=== PATIENT | female | born 1965 | race Caucasian/White ===

== ENCOUNTER 2017-03-02 15:42 | Emergency (ER) | payer OTHER ==
[~2017-03-02 15:42] MED LIST: ATENOLOL25 MG PO; CHONDROITIN SULFATE PO; FLONASE0.05 %; GLUCOSAMINE CHO1 CAP PO; MULTIVITAMIN1 TAB PO; SEREVENT DISKU50 MCG INH; TUMS500 MG PO; VITAMIN D310000 IU PO
--- NOTE | 2017-03-02 17:25 | ED NURSING NOTES ---
Clinical Report - Nurses [address] [place] [address] 03/02/2017 15:44 Patient: DANG BURNETTE TRIAGE Triage time 16:42 Mar 02 2017. Chief Complaint: INJURY TO HEAD and (pt under the house hit her head 2 days ago on an I beam- no loc "but I sure saw stars" pt cont with headache and nausea, called pcp and was sent in for eval). Alert. No acute distress. SEPSIS SCREEN: Sepsis Screen: negative. DELMY COMA SCORE: Delmy Coma Scale: 15- eyes open spontaneously (4); best verbal response- oriented x 4 (5); best motor response- obeys commands (6). --16:47 Marika Mireles R.N. 16:42 03/02/17. BP: 133/79. HR: 88. RR: 15. O2 saturation: 99%. Temp: 97.8 F. Pain level now: 810. --16:47 Marika Mireles R.N. Weight: 68 kg stated. Height/Length: 59 inches Per Patient. BMI: 30.3. --16:43 Marika Mireles R.N. Medications Atenolol Oral. Omeprazole Oral. Simvastatin Oral. --16:44 Marika Mireles R.N. Meloxicam Oral. --16:44 Marika Mireles R.N. Allergies Sulfa Antibiotics. --16:44 Marika Mireles R.N. Medication/allergy information source: the patient. --16:47 Marika Mireles R.N. History Arrived by private vehicle. Historian: patient. Accompanied by family. This occurred (2 days ago). She has had a headache. No loss of consciousness. 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 PAST MEDICAL HX: Tetanus status: up-to-date. Immunizations: up-to-date. The patient has had a hysterectomy. SOCIAL HX: Former smoker. Occasional alcohol use. History of drug use: marijuana. No infectious disease exposure. ABUSE ASSESSMENT: No report of abuse. SELF HARM ASSESSMENT: A self harm assessment was performed. The patient answered "no" to the question "Do you have thoughts of harming or killing yourself?". FALL RISK ASSESSMENT: Fall risk assessment completed. No fall risk identified. NUTRITIONAL RISK ASSESSMENT: The nutritional risk assessment revealed no deficiencies. FUNCTIONAL ASSESSMENT: Functional assessment: no impairments noted. LEARNING NEEDS ASSESSMENT: The learning needs assessment revealed no barriers. SKIN INTEGRITY ASSESSMENT: Skin integrity risk assessment completed. No skin integrity risk identified. --16:47 Marika Mireles R.N. PROBLEMS: Abdominal Pain. Gastritis. Fall. Contusion. Hypokalemia. Dizziness. Hypertension. --16:45 Marika Mireles R.N. ADDITIONAL SURGERIES: Hysterectomy. --16:45 Marika Mireles R.N. Interventions ID and allergy band on patient. --16:47 Marika Mireles R.N. PHYSICAL ASSESSMENT Ambulatory to room. GENERAL / NEURO / PSYCH: Alert. Oriented X 4. Appears in no acute distress. HEENT: Head tender. Vertex: swelling. Right and left ear within normal limits. RESPIRATORY: Respirations not labored. BACK: No neck or back tenderness. ROM normal to the neck and back. SKIN: Skin is warm and dry. --16:47 Marika Mireles R.N. NURSING PROGRESS NOTES Chair And Couch Maker provided for the general exam by the physician. Patient identifiers checked. Call light placed in reach. Side rails up x 1. Bed placed in lowest position. Brakes of bed on. Patient waiting for evaluation. --16:48 Marika Mrieles R.N. DISPOSITION / DISCHARGE No learning barriers present. Discharge instructions provided and reviewed with the patient. Reviewed medication(s) side effects, precautions, dosing and course information. Prescription(s) given to the patient. The patient was discharged by the physician. She was discharged home and accompanied by spouse and family. She left the Emergency Department ambulatory and via private vehicle. Spouse driving. ( pt dc home ambulatory with steady gait to lobby, speech clear and articulate, perrla, given rx and f/u). --17:41 Marika Mireles R.N. 17:39 03/02/17. BP: 126/69. HR: 72. RR: 15. O2 saturation: 100%. Temp: deferred. Pain level now: 02/27. --17:41 Marika Mireles R.N. Locked/Released at 03/04/2017 23:36 by Marika Mireles R.N.
--- NOTE | 2017-03-02 17:25 | ED NURSING NOTES ---
Clinical Report - Nurses [facility] [address] [place] [address] 03/02/2017 15:44 Patient: DANG BURNETTE TRIAGE Triage time 16:42 Mar 02 2017. Chief Complaint: INJURY TO HEAD and (pt under the house hit her head 2 days ago on an I beam- no loc "but I sure saw stars" pt cont with headache and nausea, called pcp and was sent in for eval). Alert. No acute distress. SEPSIS SCREEN: Sepsis Screen: negative. DELMY COMA SCORE: Delmy Coma Scale: 15- eyes open spontaneously (4); best verbal response- oriented x 4 (5); best motor response- obeys commands (6). --16:47 Marika Mireles R.N. 16:42 03/02/17. BP: 133/79. HR: 88. RR: 15. O2 saturation: 99%. Temp: 97.8 F. Pain level now: 810. --16:47 Marika Mireles R.N. Weight: 68 kg stated. Height/Length: 59 inches Per Patient. BMI: 30.3. --16:43 Marika Mireles R.N. Medications Atenolol Oral. Omeprazole Oral. Simvastatin Oral. --16:44 Marika Mireles R.N. Meloxicam Oral. --16:44 Marika Mireles R.N. Allergies Sulfa Antibiotics. --16:44 Marika Mireles R.N. Medication/allergy information source: the patient. --16:47 Marika Mireles R.N. History Arrived by private vehicle. Historian: patient. Accompanied by family. This occurred (2 days ago). She has had a headache. No loss of consciousness. 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 PAST MEDICAL HX: Tetanus status: up-to-date. Immunizations: up-to-date. The patient has had a hysterectomy. SOCIAL HX: Former smoker. Occasional alcohol use. History of drug use: marijuana. No infectious disease exposure. ABUSE ASSESSMENT: No report of abuse. SELF HARM ASSESSMENT: A self harm assessment was performed. The patient answered "no" to the question "Do you have thoughts of harming or killing yourself?". FALL RISK ASSESSMENT: Fall risk assessment completed. No fall risk identified. NUTRITIONAL RISK ASSESSMENT: The nutritional risk assessment revealed no deficiencies. FUNCTIONAL ASSESSMENT: Functional assessment: no impairments noted. LEARNING NEEDS ASSESSMENT: The learning needs assessment revealed no barriers. SKIN INTEGRITY ASSESSMENT: Skin integrity risk assessment completed. No skin integrity risk identified. --16:47 Marika Mireles R.N. PROBLEMS: Abdominal Pain. Gastritis. Fall. Contusion. Hypokalemia. Dizziness. Hypertension. --16:45 Marika Mireles R.N. ADDITIONAL SURGERIES: Hysterectomy. --16:45 Marika Mireles R.N. Interventions ID and allergy band on patient. --16:47 Marika Mireles R.N. PHYSICAL ASSESSMENT Ambulatory to room. GENERAL / NEURO / PSYCH: Alert. Oriented X 4. Appears in no acute distress. HEENT: Head tender. Vertex: swelling. Right and left ear within normal limits. RESPIRATORY: Respirations not labored. BACK: No neck or back tenderness. ROM normal to the neck and back. SKIN: Skin is warm and dry. --16:47 Marika Mireles R.N. NURSING PROGRESS NOTES Emblem Drawer In provided for the general exam by the physician. Patient identifiers checked. Call light placed in reach. Side rails up x 1. Bed placed in lowest position. Brakes of bed on. Patient waiting for evaluation. --16:48 Marika Mireles R.N. DISPOSITION / DISCHARGE No learning barriers present. Discharge instructions provided and reviewed with the patient. Reviewed medication(s) side effects, precautions, dosing and course information. Prescription(s) given to the patient. The patient was discharged by the physician. She was discharged home and accompanied by spouse and family. She left the Emergency Department ambulatory and via private vehicle. Spouse driving. ( pt dc home ambulatory with steady gait to lobby, speech clear and articulate, perrla, given rx and f/u). --17:41 Marika Mireles R.N. 17:39 03/02/17. BP: 126/69. HR: 72. RR: 15. O2 saturation: 100%. Temp: deferred. Pain level now: 02/27. --17:41 Marika Mireles R.N. Locked/Released at 03/04/2017 23:36 by Marika Mireles R.N.
--- NOTE | 2017-03-02 17:25 | ED CLINICAL REPORT ---
Clinical Report - Physicians/Mid Levels [facility] [address] [place] [address] 03/02/2017 15:44 Patient: DANG BURNETTE Time Seen: 16:24. Arrived- By private vehicle. Historian- patient. HISTORY OF PRESENT ILLNESS Chief Complaint: INJURY TO HEAD. Location of injuries- head. The injury occurred 2 days ago. The patient sustained a single severe blow. Occurred at home. ( patient reports she was crying under her house to turn off water supply. She accidentally struck her head on a cross beam. She "saw stars." However, she denies loss of consciousness. . She denies any focal numbness weakness or tingling. She has had a persistent headache since. However, this is different from her usual migraines.). The patient complains of severe pain. The patient sustained a blow to the head and was dazed. No neck pain or loss of consciousness. REVIEW OF SYSTEMS No chills, fever, sweats, calf pain or chest pain. No cough, difficulty breathing, pedal edema, palpitations or abdominal pain. No constipation, diarrhea, vomiting or urinary problems. The patient has had nausea. All systems otherwise negative, except as recorded above. PAST HISTORY Problems: Abdominal Pain. Gastritis. Fall. Contusion. Hypokalemia. Dizziness. Hypertension. Additional Surgeries: Hysterectomy. Medications: Meloxicam Oral. Atenolol Oral. Omeprazole Oral. Simvastatin Oral. Allergies: Sulfa Antibiotics. SOCIAL HISTORY Former smoker, end date 11/2016. Occasional alcohol use. History of occasional drug use: marijuana. FAMILY HISTORY Premature onset heart disease in first-degree relative (mother and sibling); cerebral aneurysm in first-degree relative (sibling); cancer in first-degree relative (father). ADDITIONAL NOTES The nursing notes have been reviewed. PHYSICAL EXAM Vital Signs: 03/02/2017 16:42 BP: 133/79. HR: 88. RR: 15. O2 saturation: 99%. Temp: 97.8 F. Pain level now: 8/10. Have been reviewed. Appearance: Alert. Head: Vertex. Eyes: Pupils equal, round and reactive to light. EOM intact. ENT: No dental injury. Pharynx normal. Neck: Painless ROM. Neck non-tender and non-tender. No vertebral tenderness. CVS: Heart sounds normal. Respiratory: Breath sounds normal. Abdomen: Soft and nontender. Back: No tenderness. ROM normal. Skin: Skin intact. Skin warm and dry. Normal skin color. Normal skin turgor. Extremities: Normal inspection. Pelvis stable. Extremities atraumatic. No lower extremity edema. Neuro: Oriented X 3. Mood/affect normal. Speech normal. No motor deficit. Normal gait. No sensory deficit. PROGRESS AND PROCEDURES Course of Care: Patient is stable. Patient/family counseled. Old medical records reviewed. Disposition: Discharged. Condition: stable. CLINICAL IMPRESSION Concussion. No loss of consciousness. INSTRUCTIONS No driving or operating machinery while taking medication. (if your symptoms persist, talk with your doctor about whether you would benefit from an MRI.). Warnings: GENERAL WARNINGS: Return or contact your physician immediately if your condition worsens or changes unexpectedly, if not improving as expected, or if other problems arise. Prescription Medications: Ultram 50 mg: take 1-2 orally every 6 hours as needed for pain. Dispense fifteen (15). Substitution is permissible. OTC Medications: Acetaminophen (available over the counter): take according to label instructions. Motrin (available over the counter): take according to label instructions. Follow-up: Follow up with your doctor in five days. Call for the next available appointment. Follow up with a neurologist- as recommended by your primary care physician. Understanding of the discharge instructions verbalized by patient and family. (Electronically signed by Nathaniel Montana MD 03/02/2017 18:11)
--- NOTE | 2017-03-04 23:37 | ED MED RECONCILIATION SUMMARY ---
Patient: DANG BURNETTE Medication Reconciliation Report [facility] VisitID: [id number] [address] [place] [address] 51y, F Registration Date/Time: 03/02/2017 Weight: 68.0 kg Height/Length: 59 in. BMI: 30.3 ALLERGIES: Sulfa Antibiotics The patient's Home Medications are listed below: THE FOLLOWING MEDICATIONS NEED TO BE RECONCILED: Atenolol Oral Meloxicam Oral Omeprazole Oral Simvastatin Oral The source(s) of the original Home Medication information: patient The following Medications were given to the patient in the Emergency Department: None. The following Medications were prescribed to the patient: Acetaminophen (available over the counter): take according to label instructions. -- Nathaniel Montana MD Motrin (available over the counter): take according to label instructions. -- Nathaniel Montana MD Ultram 50 mg: take 1-2 orally every 6 hours as needed for pain. Dispense fifteen (15). Substitution is permissible. -- Nathaniel Montana MD
--- NOTE | 2017-03-04 23:37 | ED MED RECONCILIATION SUMMARY ---
Patient: DANG BURNETTE Medication Reconciliation Report [facility] VisitID: [id number] [address] [place] [address] 51y, F Registration Date/Time: 03/02/2017 Weight: 68.0 kg Height/Length: 59 in. BMI: 30.3 ALLERGIES: Sulfa Antibiotics The patient's Home Medications are listed below: THE FOLLOWING MEDICATIONS NEED TO BE RECONCILED: Atenolol Oral Meloxicam Oral Omeprazole Oral Simvastatin Oral The source(s) of the original Home Medication information: patient The following Medications were given to the patient in the Emergency Department: None. The following Medications were prescribed to the patient: Acetaminophen (available over the counter): take according to label instructions. -- Nathaniel Montana MD Motrin (available over the counter): take according to label instructions. -- Nathaniel Montana MD Ultram 50 mg: take 1-2 orally every 6 hours as needed for pain. Dispense fifteen (15). Substitution is permissible. -- Nathaniel Montana MD
--- NOTE | 2017-03-04 23:37 | ED MAR SUMMARY ---
..... Medication Administration Record [facility] [address] [place], [place] [id number] Patient: DANG BURNETTE Visit ID: [id number] 51y, F Weight: 68.0 kg Height/Length: 59 in BMI: 30.3 ALLERGIES: Sulfa Antibiotics
--- NOTE | 2017-03-04 23:37 | ED DISCHARGE INSTRUCTIONS ---
Patient: DANG BURNETTE General Instructions [facility] VisitID: [id number] [place] [address] 51y, F Registration Date/Time: 03/02/2017 Concussion. No loss of consciousness. INSTRUCTIONS No driving or operating machinery while taking medication. (if your symptoms persist, talk with your doctor about whether you would benefit from an MRI.). Warnings: GENERAL WARNINGS: Return or contact your physician immediately if your condition worsens or changes unexpectedly, if not improving as expected, or if other problems arise. Prescription Medications: Ultram 50 mg: take 1-2 orally every 6 hours as needed for pain. Dispense fifteen (15). Substitution is permissible. OTC Medications: Acetaminophen (available over the counter): take according to label instructions. Motrin (available over the counter): take according to label instructions. Follow-up: Follow up with your doctor in five days. Call for the next available appointment. Follow up with a neurologist- as recommended by your primary care physician. Understanding of the discharge instructions verbalized by patient and family. ADDITIONAL INFORMATION Concussion (No Wake-Up) A concussion happens when you hit your head with enough force to shake up the brain. This may cause you to lose consciousness be "knocked out" - but not always. Depending on how hard you hit your head, it will take from a few hours up to a few days to get better. Sometimes symptoms may last a few months or longer. This is called post-concussion syndrome. At first, you may have a headache, nausea, vomiting, or dizziness. You may also have problems concentrating or remembering things. This is normal. Symptoms should get better as the hours and days go by. Symptoms that get worse could be a sign of a more serious injury. This might be a bruise or bleeding in the brain. Thats why its important to watch for the warning signs listed below. Home care Follow these tips to help care for yourself at home: During the next day (24 hours) someone must stay with you to check for the signs below. If your face or scalp swells, apply an ice pack for 20 minutes every 1 to 2 hours. Do this until the swelling starts to go down. You can make an ice pack by putting ice cubes in a plastic bag and wrapping the bag in a towel. for 20 minutes every 1-2 hours until the swelling starts to go down. You may use acetaminophen to control pain, unless another pain medicine was prescribed. If you have chronic liver or kidney disease, talk with your doctor before using these medicines. Also talk with your doctor if you ever had a stomach ulcer or GI bleeding. For the next 24 hours: Dont drink alcohol or take sedatives or medicines that make you sleepy. Dont drive or operate machinery. Avoid doing anything strenuous. Dont lift or strain. Dont return to sports or any activity that could cause you to hit your head until all symptoms are gone and you have been cleared by your doctor. A second head injury before fully recovering from the first one can lead to serious brain injury. Follow-up care Follow up with your doctor in 1 week, or as directed. Note: A radiologist will review any X-rays or CT scans that were taken. You will be told of any new findings that may affect your care. When to seek medical care Get prompt medical attention if any of these occur: Repeated vomiting Headache or dizziness that is severe or gets worse Unusual drowsiness, or unable to wake up as usual Confusion or change in behavior or speech, or memory loss Blurred vision Convulsion (seizure) Swelling on the scalp or face that gets worse Redness, warmth, or pus from the swollen area Fluid draining from or bleeding from the nose or ears Tramadol Hydrochloride Oral tablet What is this medicine? TRAMADOL (TRA ma dole) is a pain reliever. It is used to treat moderate to severe pain in adults. How should I use this medicine? Take this medicine by mouth with a full glass of water. Follow the directions on the prescription label. If the medicine upsets your stomach, take it with food or milk. Do not take more medicine than you are told to take. Talk to your style advisor regarding the use of this medicine in children. Special care may be needed. What side effects may I notice from receiving this medicine? Side effects that you should report to your doctor or health wound care center consultant as soon as possible: allergic reactions like skin rash, itching or hives, swelling of the face, lips, or tongue breathing difficulties, wheezing confusion itching light headedness or fainting spells redness, blistering, peeling or loosening of the skin, including inside the mouth seizures Side effects that usually do not require medical attention (report to your doctor or health wound care center consultant if they continue or are bothersome): constipation dizziness drowsiness headache nausea, vomiting What may interact with this medicine? Do not take this medicine with any of the following medications: MAOIs like Carbex, Eldepryl, Marplan, Nardil, and Parnate This medicine may also interact with the following medications: alcohol or medicines that contain alcohol antihistamines benzodiazepines bupropion carbamazepine or oxcarbazepine clozapine cyclobenzaprine digoxin furazolidone linezolid medicines for depression, anxiety, or psychotic disturbances medicines for migraine headache like almotriptan, eletriptan, frovatriptan, naratriptan, rizatriptan, sumatriptan, zolmitriptan medicines for pain like pentazocine, buprenorphine, butorphanol, meperidine, nalbuphine, and propoxyphene medicines for sleep muscle relaxants naltrexone phenobarbital phenothiazines like perphenazine, thioridazine, chlorpromazine, mesoridazine, fluphenazine, prochlorperazine, promazine, and trifluoperazine procarbazine warfarin What if I miss a dose? If you miss a dose, take it as soon as you can. If it is almost time for your next dose, take only that dose. Do not take double or extra doses. Where should I keep my medicine? Keep out of the reach of children. Store at room temperature between 15 and 30 degrees C (59 and 86 degrees F). Keep container tightly closed. Throw away any unused medicine after the expiration date. What should I tell my health care provider before I take this medicine? They need to know if you have any of these conditions: brain tumor depression drug abuse or addiction head injury if you frequently drink alcohol containing drinks kidney disease or trouble passing urine liver disease lung disease, asthma, or breathing problems seizures or epilepsy suicidal thoughts, plans, or attempt; a previous suicide attempt by you or a family member an unusual or allergic reaction to tramadol, codeine, other medicines, foods, dyes, or preservatives or trying to get breast-feeding What should I watch for while using this medicine? Tell your doctor or health wound care center consultant if your pain does not go away, if it gets worse, or if you have new or a different type of pain. You may develop tolerance to the medicine. Tolerance means that you will need a higher dose of the medicine for pain relief. Tolerance is normal and is expected if you take this medicine for a long time. Do not suddenly stop taking your medicine because you may develop a severe reaction. Your body becomes used to the medicine. This does NOT mean you are addicted. Addiction is a behavior related to getting and using a drug for a non-medical reason. If you have pain, you have a medical reason to take pain medicine. Your doctor will tell you how much medicine to take. If your doctor wants you to stop the medicine, the dose will be slowly lowered over time to avoid any side effects. You may get drowsy or dizzy. Do not drive, use machinery, or do anything that needs mental alertness until you know how this medicine affects you. Do not stand or sit up quickly, especially if you are an older patient. This reduces the risk of dizzy or fainting spells. Alcohol can increase or decrease the effects of this medicine. Avoid alcoholic drinks. You may have constipation. Try to have a bowel movement at least every 2 to 3 days. If you do not have a bowel movement for 3 days, call your doctor or health wound care center consultant. Your mouth may get dry. Chewing sugarless gum or sucking hard candy, and drinking plenty of water may help. Contact your doctor if the problem does not go away or is severe. Acetaminophen Oral tablet What is this medicine? ACETAMINOPHEN (a set a SILVANA riky fen) is a pain reliever. It is used to treat mild pain and fever. How should I use this medicine? Take this medicine by mouth with a glass of water. Follow the directions on the package or prescription label. Take your medicine at regular intervals. Do not take your medicine more often than directed. Talk to your style advisor regarding the use of this medicine in children. While this drug may be prescribed for children as young as 6 years of age for selected conditions, precautions do apply. What side effects may I notice from receiving this medicine? Side effects that you should report to your doctor or health wound care center consultant as soon as possible: allergic reactions like skin rash, itching or hives, swelling of the face, lips, or tongue breathing problems fever or sore throat redness, blistering, peeling or loosening of the skin, including inside the mouth trouble passing urine or change in the amount of urine unusual bleeding or bruising unusually weak or tired yellowing of the eyes or skin Side effects that usually do not require medical attention (report to your doctor or health wound care center consultant if they continue or are bothersome): headache nausea, stomach upset What may interact with this medicine? alcohol imatinib isoniazid other medicines with acetaminophen What if I miss a dose? If you miss a dose, take it as soon as you can. If it is almost time for your next dose, take only that dose. Do not take double or extra doses. Where should I keep my medicine? Keep out of reach of children. Store at room temperature between 20 and 25 degrees C (68 and 77 degrees F). Protect from moisture and heat. Throw away any unused medicine after the expiration date. What should I tell my health care provider before I take this medicine? They need to know if you have any of these conditions: if you frequently drink alcohol containing drinks liver disease an unusual or allergic reaction to acetaminophen, other medicines, foods, dyes or preservatives or trying to get breast-feeding What should I watch for while using this medicine? Tell your doctor or health wound care center consultant if the pain lasts more than 10 days (5 days for children), if it gets worse, or if there is a new or different kind of pain. Also, check with your doctor if a fever lasts for more than 3 days. Do not take other medicines that contain acetaminophen with this medicine. Always read labels carefully. If you have questions, ask your doctor or pharmacist. If you take too much acetaminophen get medical help right away. Too much acetaminophen can be very dangerous and cause liver damage. Even if you do not have symptoms, it is important to get help right away. Ibuprofen Oral tablet What is this medicine? IBUPROFEN (eye BYOO proe fen) is a non-steroidal anti-inflammatory drug (NSAID). It is used for dental pain, fever, headaches or migraines, osteoarthritis, rheumatoid arthritis, or painful monthly periods. It can also relieve minor aches and pains caused by a cold, flu, or sore throat. How should I use this medicine? Take this medicine by mouth with a glass of water. Follow the directions on the prescription label. Take this medicine with food if your stomach gets upset. Try to not lie down for at least 10 minutes after you take the medicine. Take your medicine at regular intervals. Do not take your medicine more often than directed. A special MedGuide will be given to you by the pharmacist with each prescription and refill. Be sure to read this information carefully each time. Talk to your style advisor regarding the use of this medicine in children. Special care may be needed. What side effects may I notice from receiving this medicine? Side effects that you should report to your doctor or health wound care center consultant as soon as possible: allergic reactions like skin rash, itching or hives, swelling of the face, lips, or tongue black or bloody stools, blood in the urine or in vomit breathing problems changes in vision chest pain general ill feeling or flu-like symptoms nausea or vomiting redness, blistering, peeling or loosening of the skin, including inside the mouth slurred speech or weakness on one side of the body stomach pain unexplained weight gain or swelling unusually weak or tired yellowing of eyes or skin Side effects that usually do not require medical attention (report to your doctor or health wound care center consultant if they continue or are bothersome): constipation or diarrhea dizziness gas or heartburn stomach upset What may interact with this medicine? Do not take this medicine with any of the following medications: cidofovir ketorolac methotrexate pemetrexed This medicine may also interact with the following medications: alcohol aspirin diuretics lithium other drugs for inflammation like prednisone warfarin What if I miss a dose? If you miss a dose, take it as soon as you can. If it is almost time for your next dose, take only that dose. Do not take double or extra doses. Where should I keep my medicine? Keep out of the reach of children. Store at room temperature between 15 and 30 degrees C (59 and 86 degrees F). Keep container tightly closed. Throw away any unused medicine after the expiration date. What should I tell my health care provider before I take this medicine? They need to know if you have any of these conditions: asthma cigarette smoker drink more than 3 alcohol containing drinks a day heart disease or circulation problems such as heart failure or leg edema (fluid retention) high blood pressure kidney disease liver disease stomach bleeding or ulcers an unusual or allergic reaction to ibuprofen, aspirin, other NSAIDS, other medicines, foods, dyes, or preservatives or trying to get breast-feeding What should I watch for while using this medicine? Tell your doctor or healthcare professional if your symptoms do not start to get better or if they get worse. This medicine does not prevent heart attack or stroke. In fact, this medicine may increase the chance of a heart attack or stroke. The chance may increase with longer use of this medicine and in people who have heart disease. If you take aspirin to prevent heart attack or stroke, talk with your doctor or health wound care center consultant. Do not take other medicines that contain aspirin, ibuprofen, or naproxen with this medicine. Side effects such as stomach upset, nausea, or ulcers may be more likely to occur. Many medicines available without a prescription should not be taken with this medicine. This medicine can cause ulcers and bleeding in the stomach and intestines at any time during treatment. Ulcers and bleeding can happen without warning symptoms and can cause . To reduce your risk, do not smoke cigarettes or drink alcohol while you are taking this medicine. You may get drowsy or dizzy. Do not drive, use machinery, or do anything that needs mental alertness until you know how this medicine affects you. Do not stand or sit up quickly, especially if you are an older patient. This reduces the risk of dizzy or fainting spells. This medicine can cause you to bleed more easily. Try to avoid damage to your teeth and gums when you brush or floss your teeth. You have been given the following additional information: Concussion, No Wake-Up Tramadol Hydrochloride Oral tablet Acetaminophen Oral tablet Ibuprofen Oral tablet No driving or operating machinery while taking medication. (Electronically signed by Nathaniel Montana MD 03/02/2017 18:11)
--- NOTE | 2017-03-04 23:37 | ED MAR SUMMARY ---
..... Medication Administration Record [facility] [address] [place], [place] [id number] Patient: DANG BURNETTE Visit ID: [id number] 51y, F Weight: 68.0 kg Height/Length: 59 in BMI: 30.3 ALLERGIES: Sulfa Antibiotics
== END 2017-03-02 17:36 | disposition home or self-care (01) ==
LOC: ED SRH 15:42
DX: S06.0X0A Concussion without loss of consciousness, initial encounter (principal); W22.8XXA Striking against or struck by other objects, initial encounter; Y93.89 Activity, other specified; Y92.019 Unspecified place in single-family (private) house as the place of occurrence of the external cause; Y99.9 Unspecified external cause status; I10 Essential (primary) hypertension; Z79.899 Other long term (current) drug therapy; Z87.891 Personal history of nicotine dependence; Z88.2 Allergy status to sulfonamides